=== PATIENT | male | born 1955 | race American Indian/Alaskan Native ===

== ENCOUNTER 2018-03-11 16:36 | Emergency (ER) | payer OTHER ==
[2018-03-11 17:57] LABS: Hematocrit 41.8 % (35.5-45.6); Hemoglobin 13.9 gm/dl (11.8-15.2); Mean Corpuscular HGB Conc 33 % (32-34); Mean Corpuscular Hemoglobin 27 pg (28-32); Mean Corpuscular Volume 82 fl (84-94); Platelet Count 178 K/mm3 (140-440); Red Blood Count 5.12 M/mm3 (3.65-5.03); Red Cell Distribution Width 16.5 % (13.2-15.2)
[2018-03-11 18:08] LABS: Alanine Aminotransferase 27 units/L (7-56); Albumin 4.1 g/dL (3.9-5); BUN/Creatinine Ratio 11; Blood Urea Nitrogen 14 mg/dL (9-20); Calcium 9.3 mg/dL (8.4-10.2); Hemolysis Index 2
[2018-03-11] MEDS ORDERED: MORPHINE IV ONE (21:27)
[2018-03-11] MEDS ORDERED: NACL 0.9% 1000 ML 1,000 ML IV ONE (21:27)
[2018-03-11] MEDS ORDERED: ZOFRAN IV ONE (21:27)
--- NOTE | 2018-03-11 21:31 | Emergency Department Report ---
ED General Adult HPI - General Chief complaint: Weakness Stated complaint: BODY PAIN Time Seen by Provider: 03/11/18 21:12 Source: patient Mode of arrival: Wheelchair Limitations: No Limitations - History of Present Illness Initial comments: Patient is 62 years old male with history of hypertension and gout. Patient presented to the ER with a chief complain often generalized weakness, body ache and decreased energy. Patient also had a low-grade temperature. Patient denied any nausea, vomiting or diarrhea. He also denied any chest pain or abdominal pain. - Related Data Home Medications Medication Instructions Recorded Confirmed Last Taken Allopurinol 300 mg PO DAILY 03/20/16 03/20/16 03/19/16 300mg AtorvaSTATin [Lipitor] 10 mg PO QHS 03/20/16 03/20/16 03/19/16 10mg Cyclobenzaprine [Flexeril 10 MG 10 mg PO BID 03/20/16 03/20/16 03/19/16 TAB] 10mg HYDROcodone/ACETAMINOPHEN 1 tab PO Q4-6H PRN 03/20/16 03/20/16 03/18/16 [Hydrocodon-Acetaminophen 5-325] 1 Timolol Maleate 1 drop OU BID 03/20/16 03/20/16 03/19/16 1 Tramadol HCl [traMADol] 50 mg PO Q8HR PRN 03/20/16 03/20/16 03/18/16 50mg Travoprost [Travatan Z 0.004%] 1 drop OU QHS 03/20/16 03/20/16 03/19/16 1 amLODIPine [Norvasc] 5 mg PO DAILY 03/20/16 03/20/16 03/19/16 5mg Allergies Allergy/AdvReac Type Severity Reaction Status Date / Time No Known Allergies Allergy Verified 03/20/16 07:16 ED Review of Systems ROS: Stated complaint: BODY PAIN Other details as noted in HPI Comment: All other systems reviewed and negative Constitutional: fever. denies: chills ENT: denies: ear pain, throat pain Respiratory: denies: cough, orthopnea, shortness of breath, SOB with exertion, SOB at rest, wheezing Cardiovascular: denies: chest pain, palpitations, dyspnea on exertion, orthopnea Gastrointestinal: denies: abdominal pain, nausea, vomiting, diarrhea, constipation, hematemesis, melena, hematochezia Neurological: weakness (generalized). denies: headache Psychiatric: denies: depression ED Past Medical Hx - Past Medical History Hx Hypertension: Yes Hx Arthritis: Yes Additional medical history: Gout - Surgical History Past Surgical History?: Yes Additional Surgical History: Left knee surgery 2013 - Social History Smoking Status: Never Smoker Substance Use Type: None - Medications Home Medications: Home Medications Medication Instructions Recorded Confirmed Last Taken Type Allopurinol 300 mg PO DAILY 03/20/16 03/20/16 03/19/16 History 300mg AtorvaSTATin [Lipitor] 10 mg PO QHS 03/20/16 03/20/16 03/19/16 History 10mg Cyclobenzaprine [Flexeril 10 MG 10 mg PO BID 03/20/16 03/20/16 03/19/16 History TAB] 10mg HYDROcodone/ACETAMINOPHEN 1 tab PO Q4-6H PRN 03/20/16 03/20/16 03/18/16 History [Hydrocodon-Acetaminophen 5-325] 1 Timolol Maleate 1 drop OU BID 03/20/16 03/20/16 03/19/16 History 1 Tramadol HCl [traMADol] 50 mg PO Q8HR PRN 03/20/16 03/20/16 03/18/16 History 50mg Travoprost [Travatan Z 0.004%] 1 drop OU QHS 03/20/16 03/20/16 03/19/16 History 1 amLODIPine [Norvasc] 5 mg PO DAILY 03/20/16 03/20/16 03/19/16 History 5mg ED Physical Exam - General Limitations: No Limitations General appearance: alert, in no apparent distress - Head Head exam: Present: atraumatic, normocephalic, normal inspection - Eye Eye exam: Present: normal appearance - ENT ENT exam: Present: normal exam, normal orophraynx, mucous membranes moist - Neck Neck exam: Present: normal inspection, full ROM. Absent: tenderness, meningismus, lymphadenopathy, thyromegaly - Respiratory Respiratory exam: Present: normal lung sounds bilaterally - Cardiovascular Cardiovascular Exam: Present: regular rate, normal rhythm, normal heart sounds - GI/Abdominal GI/Abdominal exam: Present: soft, normal bowel sounds. Absent: distended, tenderness, guarding, rebound, rigid, organomegaly, mass, bruit, pulsatile mass - Extremities Exam Extremities exam: Present: normal inspection, full ROM, normal capillary refill. Absent: pedal edema, calf tenderness - Back Exam Back exam: Present: normal inspection, full ROM. Absent: tenderness, CVA tenderness (R), CVA tenderness (L), muscle spasm, paraspinal tenderness, vertebral tenderness, rash noted - Neurological Exam Neurological exam: Present: alert, oriented X3, CN II-XII intact, normal gait, reflexes normal - Skin Skin exam: Present: warm, intact, normal color ED Course Vital Signs 03/11/18 03/11/18 03/11/18 16:43 22:19 22:30 Temperature 100.2 F H Pulse Rate 105 H 99 H Respiratory 18 20 Rate Blood Pressure 139/76 133/74 133/74 O2 Sat by Pulse 94 Oximetry 03/11/18 03/11/18 03/11/18 22:45 23:00 23:15 Temperature Pulse Rate 99 H 101 H 98 H Respiratory 21 22 20 Rate Blood Pressure 125/67 136/70 124/74 O2 Sat by Pulse Oximetry 03/11/18 23:30 Temperature Pulse Rate 97 H Respiratory 22 Rate Blood Pressure 126/76 O2 Sat by Pulse Oximetry ED Medical Decision Making - Lab Data Result diagrams: 03/11/18 17:10 03/11/18 17:10 - Radiology Data Radiology results: report reviewed Referring Physician: TRES SU Patient Name: NATANAEL SHEPPARD Date of : 1955 Sex: Male Report Date: 2018-03-11 Report Status: [place] [address] XRay Report Signed Patient: NATANAEL SHEPPARD MR#: [id number] : 1955 Acct:[id number] Age/Sex: 62 / M ADM Date: 03/11/18 Loc: ED Attending Dr: Ordering Physician: TRES SU Date of Service: 03/11/18 Procedure(s): XR chest routine 2V Accession Number(s): [id number] cc: TRES SU Fluoro Time In Minutes: FINAL REPORT EXAM: XR CHEST ROUTINE 2V HISTORY: WEAKNESS TECHNIQUE: Two view chest PA and lateral PRIORS: None. FINDINGS: Cardiac and mediastinal contours are unremarkable. No focal pulmonary infiltrate is identified. No pleural fluid collection seen. Pulmonary vasculature is unremarkable. IMPRESSION: Negative two-view chest Transcribed By: DK Dictated By: DIONNE FIGUEROA MD Electronically Authenticated By: DIONNE FIGUEROA MD Signed Date/Time: 03/11/182215 DD/ 15 TD/TT: 03/11/182215 Referring Physician: JUDIE LAINEZ Patient Name: NATANAEL SHEPPARD Date of : 1955 Sex: Male Report Date: 2018-03-12 Report Status: Finalized Findings [facility] [address] [place] [address] Cat Scan Report Signed Patient: NATANAEL SHEPPARD MR#: [id number] : 1955 Acct:[id number] Age/Sex: 62 / M ADM Date: 03/11/18 Loc: ED Attending Dr: Ordering Physician: JUDIE LAINEZ Date of Service: 03/12/18 Procedure(s): CT abdomen pelvis w con Accession Number(s): [id number] cc: JUDIE LAINEZ FINAL REPORT PROCEDURE: CT ABDOMEN PELVIS W CON TECHNIQUE: Computerized axial tomography of the abdomen and pelvis was performed after the IV injection of iodinated nonionic contrast. HISTORY: abdominal pain COMPARISON: No prior studies are available for comparison. FINDINGS: Visualized lower thorax: There is a 2.3 centimeter mass at the left lung base. This contains calcification and could be a granuloma or hamartoma but metastatic malignancy is not excluded.. Liver: There is a bilobed mass or adjacent pair of masses in the right lobe of the liver measuring up to 11 centimeters in diameter. These contain calcifications. Malignancy is suspected. There is fatty infiltration of the remainder of the liver.. Spleen: Normal size and attenuation. Gallbladder and biliary system: There are tiny gallstones. There is no specific evidence of cholecystitis or biliary ductal dilatation.. Pancreas: Normal. Adrenals: Normal. Kidneys: Normal. GI tract: There is no bowel obstruction, colitis or enteritis. The appendix is normal.. Lymph nodes and mesentery: Normal. Vasculature: Normal. Bladder: Normal. Reproductive organs: Normal. Peritoneum: Is no ascites or free air, abscess or adenopathy.. Musculoskeletal structures: No significant abnormality. Other: None. IMPRESSION: There is a 2.3 centimeter mass at the left lung base. This contains calcification and could be a granuloma or hamartoma but metastatic malignancy is not excluded. There is a bilobed mass or adjacent pair of masses in the right lobe of the liver measuring up to 11 centimeters in diameter. These contain calcifications. Malignancy is suspected. There is fatty infiltration of the remainder of the liver. There are tiny gallstones. There is no specific evidence of cholecystitis or biliary ductal dilatation. There is no bowel obstruction, colitis or enteritis. The appendix is normal. There is no ascites or free air, abscess or adenopathy. Transcribed By: CO Dictated By: HANSA MONTANEZ MD Electronically Authenticated By: HANSA MONTANEZ MD Signed Date/Time: 03/12/18238 DD/ 8 TD/TT: 03/12/18238 - Medical Decision Making Patient is 62 years old male with history of hypertension and gout. Patient presented to the ER with a chief complain often generalized weakness, body ache and decreased energy. Patient also had a low-grade temperature. Patient denied any nausea, vomiting or diarrhea. He also denied any chest pain or abdominal pain. I discussed with Mr. Sheppard his CT abdomen and pelvis finding which she include a large liver mass. Patient stated that he already know about it and he had full workup done for him at [facility] and [facility] and he was told that they cannot operate on it because the risk of bleeding is very high. Patient stated that he just wants something to help with his pain. Critical care attestation.: If time is entered above; I have spent that time in minutes in the direct care of this critically ill patient, excluding procedure time. ED Disposition Clinical Impression: Abdominal pain, Liver mass Disposition: - TO HOME OR SELFCARE Is pt being admited?: No Condition: Stable Instructions: Abdominal Pain (ED) Referrals: PRIMARY CARE, [Primary Care Provider] - 3-5 Days
--- NOTE | 2018-03-11 22:18 | XRay Report ---
FINAL REPORT EXAM: XR CHEST ROUTINE 2V HISTORY: WEAKNESS TECHNIQUE: Two view chest PA and lateral PRIORS: None. FINDINGS: Cardiac and mediastinal contours are unremarkable. No focal pulmonary infiltrate is identified. No pleural fluid collection seen. Pulmonary vasculature is unremarkable. IMPRESSION: Negative two-view chest
[2018-03-11 23:14] LABS: Bilirubin,Urine NEG (Negative); Blood,Urine NEG (Negative); Color,Urine Yellow (Yellow); Mucus,Urine FEW /HPF; Protein,Urine <15 mg/dL mg/dL (Negative); Urobilinogen,Urine < 2.0 mg/dL (<2.0); WBC,Urine < 1.0 /HPF (0.0-6.0)
--- NOTE | 2018-03-12 02:40 | Cat Scan Report ---
FINAL REPORT PROCEDURE: CT ABDOMEN PELVIS W CON TECHNIQUE: Computerized axial tomography of the abdomen and pelvis was performed after the IV injection of iodinated nonionic contrast. HISTORY: abdominal pain COMPARISON: No prior studies are available for comparison. FINDINGS: Visualized lower thorax: There is a 2.3 centimeter mass at the left lung base. This contains calcification and could be a granuloma or hamartoma but metastatic malignancy is not excluded.. Liver: There is a bilobed mass or adjacent pair of masses in the right lobe of the liver measuring up to 11 centimeters in diameter. These contain calcifications. Malignancy is suspected. There is fatty infiltration of the remainder of the liver.. Spleen: Normal size and attenuation. Gallbladder and biliary system: There are tiny gallstones. There is no specific evidence of cholecystitis or biliary ductal dilatation.. Pancreas: Normal. Adrenals: Normal. Kidneys: Normal. GI tract: There is no bowel obstruction, colitis or enteritis. The appendix is normal.. Lymph nodes and mesentery: Normal. Vasculature: Normal. Bladder: Normal. Reproductive organs: Normal. Peritoneum: Is no ascites or free air, abscess or adenopathy.. Musculoskeletal structures: No significant abnormality. Other: None. IMPRESSION: There is a 2.3 centimeter mass at the left lung base. This contains calcification and could be a granuloma or hamartoma but metastatic malignancy is not excluded. There is a bilobed mass or adjacent pair of masses in the right lobe of the liver measuring up to 11 centimeters in diameter. These contain calcifications. Malignancy is suspected. There is fatty infiltration of the remainder of the liver. There are tiny gallstones. There is no specific evidence of cholecystitis or biliary ductal dilatation. There is no bowel obstruction, colitis or enteritis. The appendix is normal. There is no ascites or free air, abscess or adenopathy.
[2018-03-12 03:45] VITALS: BP 137/89
== END 2018-03-12 03:44 | disposition home or self-care (01) ==
LOC: ED 16:36
DX: R16.0 Hepatomegaly, not elsewhere classified (principal); I10 Essential (primary) hypertension; M19.90 Unspecified osteoarthritis, unspecified site; M10.9 Gout, unspecified
CPT/HCPCS: 36415; 71046; 74177; 80053; 81001; 83690; 83880; 84484; 85027; 93005; 93010; 96374; 96375; 99284; J2270; J2405; J7030; Q9967; 96361